=== PATIENT | female | born 1965 | race Caucasian/White ===

== ENCOUNTER → 2017-02-11 | Day surgery (SDC) | payer OTHER ==
[~2017-02-11] VITALS: Ht 167.6 cm; Wt 87.1 kg
[~2017-02-11] MED LIST: *morphine SULFATE 8 MG/ML PERIprocedure ONLY ONE; ACETAMINOPHEN 1000 MG/100 ML VIAL IV ONE; ACETAMINOPHEN 1000 MG/100 ML VIAL IV SCH; BUPIVACAINE HCL PF 0.5% 30 ML VIAL ONE; BUPIVACAINE/EPINEPHRINE 0.5% PF 10 ML VIAL ONE; CHLORHEXIDINE GLUCONATE 2 % 1 PACK (2 CLOTHS) TOPICAL PRN; DICLOFENAC SODIUM 37.5 MG/ML VIAL IV PUSH ONE; DO NOT ADM ANY ANTICOAGULANT DRUGS PRN; ESTR0.5T3 PO; FAMOTIDINE 20 MG/2 ML VIAL ONE; FLUO10CA5 PO; HYDROmorphone HCL PF 2 MG/ML VIAL ONE; INSULIN HUMAN REGULAR 1,000 UNITS/10 ML VIAL SQ PRN; KETOROLAC TROMETHAMINE 30 MG/ML (IVP) VIAL IV PUSH ONE; LACTATED RINGER'S 1000 ML INJ 1,000 ML IV ONE; LACTATED RINGER'S 1000 ML IV PRN; METOPROLOL TARTRATE 25 MG TAB PO PRN; MORPHINE SULFATE 4 MG/ML INJ IV PRN; NEOSTIGMINE 3 MG/3 ML SYR IV ONE; ONDANSETRON HCL 4 MG/2 ML VIAL IV PRN; ONDANSETRON HCL 4 MG/2 ML VIAL IV PUSH ONE; POVIDONE IODINE 5% (ANTISEPSIS KIT) 4 APPLICATIONS EACH NARE PRN; PRIL20CA9 PO; PROPOFOL 200 MG/20 ML AMP IV ONE; PROZ20CA11 PO; SODIUM CHLORID 0.9% 500 ML IV PRN; SODIUM CHLORIDE 0.9% FLUSH 10 ML FLUSH IV FLUSH PRN; SODIUM CHLORIDE 0.9% FLUSH 10 ML FLUSH IV FLUSH SCH; ceFAZolin 2 GM PREMIX 50 ML IV SCH; ceFAZolin 2 GM PREMIX 50 ML ONE; ePHEDrine/NS 25 MG/5 ML SYR IV ONE; oxyCODONE/ACETAMINOPHEN 5 MG/325 MG TAB PO PRN
[2017-02-11 09:02] VITALS: BP 128/77; PULSE 67; RESP 20; TEMP 98.8; O2SAT 99
--- NOTE | 2017-02-11 11:18 | PD.OP ---
cc: Jhonny Perrin MD; Laury Caba MD Operative Report Date of Surgery: February 11, 2017 Preoperative Diagnosis: Chronic cholecystitis and cholelithiasis Postoperative Diagnosis: Chronic cholecystitis and cholelithiasis Procedure: Laparoscopic cholecystectomy Anesthesia: General endotracheal Surgeon: Jhonny Perrin Automatic Toe Laster(s): None Operation and Findings: Operative findings: The patient was found to have a slightly diseased-appearing gallbladder which had omental adhesions along its entire length. The cystic duct was somewhat thickened. The common bile duct appeared to be of normal caliber. Operative procedure: The patient was brought to the operating room and after satisfactory general endotracheal anesthesia was obtained, the abdomen was prepped and draped in usual sterile fashion. 0.5% Marcaine with epinephrine was used to infiltrate the skin for local anesthesia due to the patient's previous hysterectomy and incision was made in the upper abdomen and a 5 mm trocar was placed in the peritoneal cavity under direct visualization. The abdomen was then distended to 15 mmHg using carbon dioxide after which the camera was reinserted and visceral injury inspected for, with none being identified. Under direct visualization a 5 port placed in the periumbilical region and left 12 port was placed in the upper abdomen. The gallbladder was grasped and retracted superiorly over the right lobe of the liver after which adhesions were taken down bluntly with the Harmonic scalpel used for hemostasis. The Muller's pouch area was cleared of adhesions then grasped and retracted inferiorly and laterally, placing tension on the hepatoduodenal ligament. The cystic artery was dissected free bluntly and identified as entering the gallbladder. It was divided with a Harmonic scalpel. Extensive dissection was carried out to identify the cystic duct was seen which was seen to be somewhat aberrant in its entry into the common bile duct. In view of that finding it was decided to a retrograde dissection of the gallbladder from the liver bed which was a callus with a Harmonic scalpel. 2 endo-loops using PDS were used to control the distal Muller's pouch, the cystic duct area after which the gallbladder was removed by dividing the remaining tissue with the Harmonic scalpel. It was placed within an Endo Catch bag and brought through the upper midline incision where his entity of its bile to allow egress without problem. The liver bed was inspected and found to be hemostatic. The cystic duct and cystic artery stumps were seen to be intact with no leakage of bile or blood. The carbon dioxide was vented as completely as possible to the atmosphere after which the ports were removed and the skin defects closed with interrupted 4-0 PDS subcuticular stitches. Steri-Strips were applied and the patient was then awakened and taken from the operating room in satisfactory condition having tolerated the procedure without problem. Estimated blood loss was less than 5 mL's. The instrument, sponge, and needle counts were reported as being correct 2 at the end of the procedure. Jhonny Perrin MD February 11, 2017 11:18
[2017-02-11 13:02] VITALS: BP 119/67; PULSE 82; RESP 16; TEMP 98.5; O2SAT 94
== END | disposition home or self-care (01) ==
LOC: HSDC 08:33
PROVIDERS: ATTEND Surgery
DX: K81.1 Chronic cholecystitis (principal); K66.0 Peritoneal adhesions (postprocedural) (postinfection); K21.9 Gastro-esophageal reflux disease without esophagitis; F32.9 Major depressive disorder, single episode, unspecified; Z87.891 Personal history of nicotine dependence
CPT/HCPCS: 47562; 88304; J0131; J1170; J2270; J2405; J2710; J7120; J0690; J1130